=== PATIENT | male | born 1935 | race Caucasian/White ===

== ENCOUNTER → 2017-01-27 | Outpatient (CLI) | payer MEDICARE, OTHER | END | disposition home or self-care (01) | LOC: GMAH 10:12 | PROVIDERS: ATTEND Family Medicine | DX: I10 Essential (primary) hypertension (principal) ==

== ENCOUNTER 2017-03-12 02:45 | Day surgery (SDC) | payer MEDICARE, OTHER ==
[2017-03-12] MEDS ORDERED: LACTATED RINGERS 1,000 ML ONE (05:59)
[2017-03-12] MEDS ORDERED: fentaNYL CITRATE INJ 50 MCG/ML AMP ONE (08:46)
--- NOTE | 2017-03-12 09:51 | OP ---
DATE OF PROCEDURE: 03/12/17 PREOPERATIVE DIAGNOSIS: 1. History of colon cancer in 2009. 2. History of polyps, multiple tubular adenomas removed during his last colonoscopy in December of 2014. POSTOPERATIVE DIAGNOSIS: 1. Diverticulosis. PROCEDURE: 1. Colonoscopy. SURGEON: Nirav Dhillon MD. COMPLICATIONS: None apparent. BLOOD LOSS: None. MEDICATIONS: Monitored anesthesia care. DESCRIPTION OF PROCEDURE: Informed consent was obtained prior to sedation. The preprocedure cardiopulmonary assessment was satisfactory. The patient was placed in the left lateral decubitus position and was sedated. The tip of the Olympus colonoscope was inserted in the rectum and guided easily over to the cecum. The cecum was identified by locating the ileocecal valve and appendiceal orifice. Prep was good overall. There were a few areas that had some residue and liquid. I irrigated and suctioned this away to allow for good visualization. The mucosa of the cecum, ascending colon, hepatic flexure, transverse colon, splenic flexure, descending colon and residual sigmoid colon was examined. Direct and retroflexed views of the rectum were obtained. The patient has evidence of a colocolonic anastomosis in the left colon from his prior resection. The patient has a few diverticula in the ascending colon and left colon as well. There are several tattooed areas from prior polypectomies. There is no evidence of any residual polyps and no evidence of malignancy. The procedure was then terminated after examination was completed. RECOMMENDATIONS: 1. Followup with me in the office in one year. 2. At 81 years old, he likely does not need any followup colon cancer screening. We certainly would investigate any symptoms that arise in the future. #[id number] cc: Sarwat Winchester MD [facility]
[2017-03-12] MEDS ORDERED: LIDOCAINE 1% 10 ML VIAL INJ ONE (10:00)
[2017-03-12] MEDS ORDERED: PROPOFOL 200 MG/20 ML VIAL IV ONE (10:00)
[2017-03-12 10:20] VITALS: BP 194/87; TEMP 97.5; O2SAT 99
== END 2017-03-12 10:20 | disposition home or self-care (01) ==
LOC: AMB 02:45
PROVIDERS: ATTEND Internal Medicine Gastroenterology
DX: Z12.11 Encounter for screening for malignant neoplasm of colon (principal); K57.30 Diverticulosis of large intestine without perforation or abscess without bleeding; I10 Essential (primary) hypertension; E11.9 Type 2 diabetes mellitus without complications; E78.5 Hyperlipidemia, unspecified; G50.0 Trigeminal neuralgia; K21.9 Gastro-esophageal reflux disease without esophagitis; Z86.010 Personal history of colon polyps; Z85.038 Personal history of other malignant neoplasm of large intestine; Z79.82 Long term (current) use of aspirin; Z79.899 Other long term (current) drug therapy
CPT/HCPCS: 00810; 82948; G0105; J3010; J3490; J7120

== ENCOUNTER → 2017-05-16 | Outpatient (CLI) | payer MEDICARE, OTHER | LOC: GMAH 11:35 | PROVIDERS: ATTEND Family Medicine | DX: E53.8 Deficiency of other specified B group vitamins (principal); D64.9 Anemia, unspecified ==

== ENCOUNTER → 2017-06-02 | Outpatient (CLI) | payer MEDICARE, OTHER ==
--- NOTE | 2017-06-03 07:43 | MRI ---
MRI left knee without contrast INDICATION: Bilateral primary osteoarthrosis chronic knee pain TECHNIQUE: Noncontrast MR imaging left knee standard protocol FINDINGS: Large joint effusion. There is a diffuse medial meniscal tear with displaced fragment noted adjacent to the medial femoral condyle extending obliquely to the posterior horn region. This is a delaminating partial bucket-handle type lesion. There is a large osteochondral lesion with subchondral impaction/collapse with subchondral cystic changes and overlying grade 4 chondrosis in the midportion medial femoral condyle. This lesion measures about 2.5 cm in AP dimension. No disruption of the cruciate ligaments. Mild free edge degenerative tear body and posterior horn lateral meniscus with diffuse background myxoid degeneration. Extensor tendons are intact. The coronal gluer and wedger images show a T1 hyperintense mass possibly lipoma in the vastus medialis region consider MRI of the thigh to further characterize. Multifocal up to grade 4 chondrosis of the patella. There is a region of subchondral cystic change in the medial patellar facet to the apex measuring at 10 mm wide indicating overlying grade 4 chondrosis. Moderate joint effusion. No collateral ligament disruption. IMPRESSION: Extensive osteochondral lesion with subchondral cystic change and overlying grade 4 chondrosis medial femoral condyle with subchondral impaction/collapse Extensive medial meniscal tear with displaced bucket handle type fragment Lower grade degenerative tear lateral meniscus Moderate joint effusion Up to grade 4 multifocal chondrosis of the patellofemoral joint especially medial patellar facet and apex Probable lipoma in the vastus medialis in the distal thigh recommend dedicated MRI thigh to further assess Electronically signed by: Diego Wellington MD 06/03/2017 7:42 AM CDT
--- NOTE | 2017-06-03 07:47 | MRI ---
MRI right knee without contrast INDICATION: Bilateral knee pain chronic primary osteoarthrosis TECHNIQUE: Noncontrast MR imaging right knee standard protocol FINDINGS: Moderate joint effusion. Multifocal grade 4 chondrosis across the patellar apex with subchondral edema and cystic change. There is also cyst formation along the lateral margin of the lateral facet. Mild lateral patellar tracking. Cruciate ligaments are intact. Extensor tendons are intact. There is a diffuse horizontal degenerative tear throughout the body and posterior horn medial meniscus. Mild discoid morphology of the lateral meniscus with mild degenerative signal and minimal fraying as well. Multifocal up to grade 3-4 chondrosis of the medial tibiofemoral compartment. Mild IT band friction edema as well. There is mild partial extrusion of the medial meniscus on the coronal images related to the osteoarthrosis. IMPRESSION: Multifocal chondrosis of the knee up to grade 4 most pronounced in the patellofemoral and medial tibiofemoral compartments Moderate joint effusion Mild lateral patellar tracking Degenerative meniscal tears with mild discoid morphology laterally and partial medial extrusion of the medial meniscus Electronically signed by: Diego Wellington MD 06/03/2017 7:46 AM CDT
== END | disposition home or self-care (01) ==
LOC: MRI 08:57
PROVIDERS: ATTEND Specialist
DX: M17.0 Bilateral primary osteoarthritis of knee (principal)

== ENCOUNTER → 2017-07-22 | Outpatient (CLI) | payer MEDICARE, OTHER | END | disposition home or self-care (01) | LOC: GMAH 10:36 | PROVIDERS: ATTEND Family Medicine | DX: D64.9 Anemia, unspecified (principal); E53.8 Deficiency of other specified B group vitamins ==

== ENCOUNTER → 2017-11-03 | Outpatient (CLI) | payer MEDICARE, OTHER | END | disposition home or self-care (01) | LOC: GMAH 11:18 | PROVIDERS: ATTEND Family Medicine | DX: Z12.5 Encounter for screening for malignant neoplasm of prostate (principal); E78.2 Mixed hyperlipidemia | CPT/HCPCS: 84443; 84550; G0103 ==

== ENCOUNTER 2018-04-23 16:36 | Inpatient (IN) | payer OTHER ==
--- NOTE | 2018-04-23 17:21 | ED.PDOC ---
History of Present Illness - General Chief Complaint: GI Problem Stated Complaint: Sour stomach Time Seen by Provider: 04/23/18 17:17 Source: patient, family Exam Limitations: no limitations Additional Information: PT REPORTS HE IS JUST NOT FEELING WELL. C/O "SOUR STOMACH" HAS SEEN HIS PCP AND IS ON CIPRO FOR A "VIRAL INTESTINAL INFX" STARTED INITIALLY WITH N/V/D BUT NOW JUST C/O NAUSEA AND GENERALIZED MALAISE. - History of Present Illness Timing/Duration: 1 week Improving Factors: nothing Worsening Factors: nothing Associated Symptoms: weakness Allergies/Adverse Reactions: Allergies Carbamazepine [From Tegretol] Allergy (Verified 05/03/15 15:09) Oxcarbazepine [From Trileptal] Allergy (Verified 05/03/15 15:09) Home Medications: Ambulatory Orders Acetaminophen [Tylenol] 1,000 mg PO BID 03/11/17 Allopurinol [Zyloprim] 300 mg PO DAILY 03/11/17 Aspirin [St Azeem Low Dose Aspiri] 81 mg PO BEDTIME 03/11/17 Atorvastatin Calcium [Lipitor] 20 mg PO BEDTIME 03/11/17 Bioflavonoid Products [Jaz-C] 1 tab PO DAILY 03/11/17 Celecoxib [Celebrex] 200 mg PO DAILY 03/11/17 Lactobacillus [Acidophilus] 1 tab PO DAILY 03/11/17 Lisinopril & Hydrochlorothiazi [Lisinopril/Hctz 20-25 mg] 1 tab PO DAILY Loratadine [Claritin] 10 mg PO DAILY 03/11/17 Metformin HCl [Metformin HCl ER (Osmotic] 500 mg PO BID 03/11/17 Multiple Vitamin [Multi Vitamin] 1 tab PO DAILY 03/11/17 Nebivolol HCl [Bystolic] 20 mg PO DAILY 03/11/17 Pantoprazole Sodium 40 mg PO PRN 03/11/17 Potassium Chloride [Klor-Con 25] 50 meq PO BID 03/11/17 Spironolactone [Aldactone] 12.5 mg PO DAILY 03/11/17 Verapamil HCl [Verapamil HCl Sr] 240 mg PO BID 03/11/17 Review of Systems - Review of Systems Constitutional: States: fever. Denies: chills EENTM: States: no symptoms reported Respiratory: States: cough. Denies: short of breath, wheezing Cardiology: Denies: chest pain, palpitations, syncope Gastrointestinal/Abdominal: States: diarrhea, nausea, vomiting. Denies: abdominal pain Genitourinary: Denies: dysuria, frequency, hematuria Musculoskeletal: States: no symptoms reported Skin: States: no symptoms reported Neurological: States: no symptoms reported Endocrine: States: no symptoms reported Hematologic/Lymphatic: States: no symptoms reported Past Medical History (General) - Patient Medical History Hx Seizures: No Hx Stroke: No Hx Asthma: No Hx of COPD: No Hx Cardiac Disorders: Yes Hx Congestive Heart Failure: No Hx Pacemaker: No Hx Hypertension: Yes Hx Diabetes: Yes Hx Gastroesophageal Reflux: Yes Hx Cancer: Yes - Skin , colon Hx MRSA: No Surgical History: colectomy - Vaccination History Hx Tetanus, Diphtheria Vaccination: No Hx Influenza Vaccination: Yes - 2017 Hx Pneumococcal Vaccination: Yes - Social History Hx Tobacco Use: No Hx Alcohol Use: No Hx Substance Use: No Hx Physical Abuse: No Hx Emotional Abuse: No Family Medical History - Family History Mother Family History: No Known Living Status: Hx Family Asthma: No Hx Family Congestive Heart Failure: No Hx Family Hypertension: Yes Hx Family Stroke: No Hx Cardiac Disease: No Hx Family Diabetes: No Hx Family Cancer: Yes Physical Exam - Physical Exam General Appearance: Alert, No apparent distress Eye Exam: bilateral normal Ears, Nose, Throat: normal ENT inspection, normal pharynx, other - DRY MUCOUS MEMBRANES Neck: non-tender, full range of motion, supple Respiratory: lungs clear, normal breath sounds, no respiratory distress Cardiovascular/Chest: regular rate, rhythm, no murmur Gastrointestinal/Abdominal: non tender, soft, no organomegaly Back Exam: normal inspection, no CVA tenderness, no vertebral tenderness Extremity: normal range of motion, non-tender, normal inspection Neurologic: alert, normal mood/affect Skin Exam: normal color, other - HOT/DRY/NO RASH Lymphatic: no adenopathy Departure - Departure Clinical Impression: Diabetes 1.5, managed as type 2 Pneumonia Qualifiers: Pneumonia type: due to unspecified organism Laterality: left Lung location: lower lobe of lung Qualified Code(s): J18.1 - Lobar pneumonia, unspecified organism Hypertension Qualifiers: Hypertension type: essential hypertension Qualified Code(s): I10 - Essential ( primary) hypertension ICD-10 Supporting Text: PARTIALLY TREATED PNEUMONIA Time of Disposition: 20:30 - D/W LEONARDO WILL ADMIT Disposition: Admit Patient Condition: Fair Departure Forms: ED Discharge - Pt. Copy, Patient Portal Self Enrollment Referrals: Sarwat Winchester MD [Primary Care Provider] - 1-2 Weeks Home Medications: Ambulatory Orders Acetaminophen [Tylenol] 1,000 mg PO BID 03/11/17 Allopurinol [Zyloprim] 300 mg PO DAILY 03/11/17 Aspirin [St Azeem Low Dose Aspiri] 81 mg PO BEDTIME 03/11/17 Atorvastatin Calcium [Lipitor] 20 mg PO BEDTIME 03/11/17 Bioflavonoid Products [Jaz-C] 1 tab PO DAILY 03/11/17 Celecoxib [Celebrex] 200 mg PO DAILY 03/11/17 Lactobacillus [Acidophilus] 1 tab PO DAILY 03/11/17 Lisinopril & Hydrochlorothiazi [Lisinopril/Hctz 20-25 mg] 1 tab PO DAILY Loratadine [Claritin] 10 mg PO DAILY 03/11/17 Metformin HCl [Metformin HCl ER (Osmotic] 500 mg PO BID 03/11/17 Multiple Vitamin [Multi Vitamin] 1 tab PO DAILY 03/11/17 Nebivolol HCl [Bystolic] 20 mg PO DAILY 03/11/17 Pantoprazole Sodium 40 mg PO PRN 03/11/17 Potassium Chloride [Klor-Con 25] 50 meq PO BID 03/11/17 Spironolactone [Aldactone] 12.5 mg PO DAILY 03/11/17 Verapamil HCl [Verapamil HCl Sr] 240 mg PO BID 03/11/17 Decision To Admit - Decistion To Admit Decision to Admit Reason: Admit from ER Decision to Admit Date: 04/23/18 Decision to Admit Time: 20:25
--- NOTE | 2018-04-23 17:39 | RAD ---
EXAM DESCRIPTION: Chest,2 Views CLINICAL HISTORY:82 years Male, NAUSEA, COUGH Comparison: May 04, 2015 FINDINGS: Left basilar /retrocardiac patchy opacities may represent atelectasis or pneumonia. No pleural effusion. No pneumothorax. Cardiac and mediastinal silhouette is unremarkable. No acute osseous abnormality. Spine degenerative changes. Soft tissues are unremarkable. IMPRESSION: Left basilar/retrocardiac patchy opacities may represent atelectasis or pneumonia. Electronically signed by: Gume Ambrocio MD 04/23/2018 5:38 PM CDT
[2018-04-23] MEDS ORDERED: IBUPROFEN 200 MG TAB ONE (19:02)
[2018-04-23] MEDS ORDERED: IBUPROFEN 200 MG TAB PO ONE (19:02)
--- NOTE | 2018-04-23 19:22 | CT ---
EXAM DESCRIPTION: Abdoment/Pelvis w/o Contrast CLINICAL HISTORY: FEVER, ELEVATED LIVER ENZYMES COMPARISON: None Available. TECHNIQUE: Contiguous axial images of the abdomen and pelvis were obtained followed by reconstruction images. This exam was performed according to our departmental dose-optimization program, which includes automated exposure control, adjustment of the mA and/or kV according to patient size and/or use of iterative reconstruction technique. FINDINGS: There is consolidation and atelectasis at the left lung base. Several right renal stones measuring up to approximately 9 mm. No ureteral stone on either side. Exophytic lesion of the left kidney may be a cyst. There is bilateral renal atrophy. There is enlargement of the prostate. Neoplasm is not excluded. There is focal enlargement of the gastric wall. The stomach is quite underdistended and this could be transient but neoplasm or other abnormality is not excluded. The right lung base contains atelectasis and scar but no significant consolidation. Fat but no bowel extends into bilateral inguinal hernias. There is trace pelvic fluid. The gallbladder is unremarkable by CT criteria. Adrenal glands are within normal limits. Aorta is of normal caliber and tapering. There is no bowel obstruction. IMPRESSION: Left lung base consolidation. See additional findings above. Electronically signed by: Wilmar Joy 04/23/2018 7:21 PM CDT
--- NOTE | 2018-04-23 21:01 | HP ---
SUPERVISING PHYSICIAN: Sebastian Lynch M.D. CHIEF COMPLAINT: Gastrointestinal problem and fever. HISTORY OF PRESENT ILLNESS: This is an 82 year-old male patient who has been sick with a fever, nausea and vomiting since Friday. He had chills and was dizzy. He went to see Arvind Obando, his primary care physician, and he sent him to the hospital to get IV fluids and some lab work. He also placed him on Cipro for gastroenteritis. He has continued to feel poorly. Although the vomiting is now gone, he continues to feel nauseated and has general malaise and fatigue, and he came to the Emergency Room. In the Emergency Room his WBCs were 9.1 with hemoglobin 12.7, hematocrit 38.3. Neutrophils were 78.4%. Chemistry was slightly low at 133, potassium 3.5, chloride 101, carbon dioxide 23, BUN 53, creatinine 2.11. His baseline creatinine is 1.1 to 1.2 and it was 1.4 on Friday. His bilirubin was 0.9. AST 228, ALT 169, alkaline phosphatase 128. Albumin 3, globulin 4.2. On Friday, his AST was 27, ALT was 17 and alkaline phosphatase was 88. Lactic acid 1.4. Urinalysis showed 100 urine protein, trace of lysed urine blood and 2 urine urobilirubin. Because of his elevated LFTs an abdominal/pelvic CT was done that showed a left lung base consolidation with several right renal stones measuring up to approximately 9 mm. No ureteral stone on either side. Exophytic lesion of the left kidney may be a cyst. There is bilateral renal atrophy. There is enlargement of the prostate. Neoplasm is not excluded. There is focal enlargement of the gastric wall. The stomach is quite under distended and this could be transient, but neoplasm or other abnormality is not excluded. Fat but no bowel extends into the bilateral inguinal hernias and there is a trace of pelvic fluid. The gallbladder is unremarkable by CT criteria. The adrenal glands are within normal limits. There is no bowel obstruction. A chest x-ray was done and it also shows a left basilar/retrocardiac patchy opacity that may represent atelectasis or pneumonia. The patient has not had any of his home medications since last Friday with the exception of his Cipro that was prescribed for him on Friday, his Zofran, 1 dose of Celebrex and 1 dose of Benadryl. I was called for admission to the hospital PAST MEDICAL HISTORY: 1. Diabetes mellitus type 2. 2. Hypertension. 3. Benign prostatic hypertrophy. 4. Colorectal cancer. 5. Trigeminal neuralgia. 6. Gastroesophageal reflux disease. PAST SURGICAL HISTORY: 1. Colorectal surgery. 2. Appendectomy. 3. Trigeminal nerve surgery. CURRENT MEDICATIONS: Per the EMR and awaiting verification. ALLERGIES: CARBAMAZEPINE AND OXCARBAZEPINE. FAMILY HISTORY: Hypertension and cancer. SOCIAL HISTORY: He quit smoking in 1980. There is no history of alcohol or illicit drug use. He is . He lives in [place]. REVIEW OF SYSTEMS: Positive for fever and fatigue. Negative for weight changes. HEENT: Negative for sinus symptoms, ear pain, vision changes, sore throat. RESPIRATORY: Positive for some mild shortness of breath but negative for coughing or wheezing. CARDIAC: Negative for chest pain, palpitations or tachycardia. GASTROINTESTINAL: Positive for nausea, vomiting. Negative for diarrhea or constipation. GENITOURINARY: Negative for hematuria, nocturia or dysuria. SKIN: Negative for lesions or rashes. HEMATOLOGIC: Negative for bruising. NEUROLOGIC: Negative for dizziness, headaches or seizures. PHYSICAL EXAMINATION: VITAL SIGNS: Temperature on admission was 101.9, it is now 99.1. Heart rate 68 , blood pressure 124/72, respiratory rate 18, O2 sat 94% on room air. GENERAL: This is an 82 year-old male patient who is lying in his hospital bed. He is in no acute distress. HEENT: Normocephalic and atraumatic. Pupils are equal and reactive. Oropharynx is clear. Oral mucous membranes are moist. NECK: Supple without mass. RESPIRATORY: Somewhat diminished at the bases but otherwise clear to auscultation bilaterally. CHEST: There is equal rise and fall of the chest with inspiration and expiration. CARDIOVASCULAR: Regular rate and rhythm. GASTROINTESTINAL: Abdomen is soft, nondistended, non-tender. Bowel sounds are positive. EXTREMITIES: No cyanosis, clubbing or edema. NEUROLOGIC: He is awake, alert and oriented times three. LABORATORY: Labs and films are as per the history of present illness. ASSESSMENT: 1. Left lower lobe pneumonia. Has recently been treated with Cipro for another illness. 2. Gastroenteritis times 5 days, failed outpatient treatment. He recently was treated with Cipro and fluids as an outpatient. 3. Elevated liver function tests with normal liver function tests 2 days ago. 4. Febrile illness most likely secondary to #1. 5. Acute renal failure with creatinine on admission of 2.11. 6. Dehydration most likely secondary to the gastroenteritis as well as febrile illness. 7. Hypertension. 8. Gastroesophageal reflux disease. 9. Diabetes mellitus type 2. 10. Benign prostatic hypertrophy. 11. History of colorectal cancer. PLAN: We will admit the patient to the hospital. I have initiated pneumonia guidelines. He will be started on Levaquin and Rocephin. Also, I will place him on bowel rest and make him NPO. I have ordered a sonogram of the abdomen in the AM. Started him on a PPI for ulcer prophylaxis and Lovenox for DVT prophylaxis. He will be on Accu-Cheks with sliding scale every 6 hours. I have also given Zofran for nausea. He also sees Dr. Dhillon, warp scouring vat tender. #[id number] [facility]
[2018-04-23] MEDS ORDERED: SODIUM CHLORIDE 0.9% (FLUSH) 10 ML SYG IV PRN (21:31)
[2018-04-23] MEDS ORDERED: cefTRIAXone SODIUM 1 GM VIAL ONE (21:43)
[2018-04-23] MEDS ORDERED: SODIUM CHL 0.9% 50ML MIN-BAG+ 50 ML IVPB ONE (21:43)
[2018-04-23] MEDS ORDERED: cefTRIAXone SODIUM 1 GM in SODIUM CHL 0.9% 50ML MIN-BAG+ 50 ML IVPB SCH (22:00)
[2018-04-23] MEDS ORDERED: IV SET AND CAP CHANGE INJ INJ SCH (22:00)
[2018-04-23] MEDS ORDERED: SODIUM CHLORIDE 0.9% 1000ML 1,000 ML IVS ONE (22:58)
[2018-04-23] MEDS ORDERED: AZITHROMYCIN IV 500 MG in SODIUM CHLORIDE 0.9% 250ML 250 ML IVPB SCH (23:00)
[2018-04-23] MEDS ORDERED: ENOXAPARIN SODIUM 40 MG/0.4 ML SYG SUBCU SCH (23:30)
[2018-04-23] MEDS ORDERED: PANTOPRAZOLE SODIUM IV 40 MG VIAL IV SCH (23:30)
[2018-04-24] MEDS ORDERED: DEXTROSE 50% 25 GM/50 ML SYG IV PRN (00:04)
[2018-04-24] MEDS ORDERED: GLUCAGON INJ 1 MG VIAL SUBCU PRN (00:04)
[2018-04-24] MEDS ORDERED: ONDANSETRON INJ 4 MG/2 ML VIAL IV PRN (00:05)
[2018-04-24] MEDS: levoFLOXacin 500MG IV 500 MG in PREMIX BAG 1 BAG IVPB SCH ×2 (00:42→23:14)
[2018-04-24] MEDS: KCL 20MEQ/D5NS 1,000 ML IVS PRN ×3 (01:56→13:59)
[2018-04-24] MEDS: INSULIN LISPRO 100 UNITS/ML PEN SUBCU SCH ×3 (06:25→21:15)
--- NOTE | 2018-04-24 06:53 | RAD ---
EXAM: PA and LATERAL CHEST RADIOGRAPHS CLINICAL INDICATION: Pneumonia. COMPARISON: Compared to the chest radiographs of April 23, 2018. FINDINGS: Cardiac size and pulmonary vasculature are normal. Unchanged left lower lobe consolidation. Lungs remain otherwise clear. No pleural effusions or pneumothorax. No free peritoneal gas layering under the hemidiaphragms. No suspicious hilar or mediastinal lymphadenopathy. Bones are intact on these two views. IMPRESSION: Unchanged chest radiograph. Electronically signed by: Ravi Roldan MD 04/24/2018 6:51 AM CDT
[2018-04-24] MEDS: SODIUM CHLORIDE 0.9% (FLUSH) 10 ML SYG IV SCH ×2 (09:29→20:48)
--- NOTE | 2018-04-24 12:53 | US ---
EXAM DESCRIPTION: Abdomen,Complete CLINICAL HISTORY: elevated LFTs COMPARISON: None. TECHNIQUE: Real-time sonographic images of the abdomen are obtained. FINDINGS: Pancreas is unremarkable. The right lobe of the liver measures 18.0 cm. The liver is diffusely homogeneous and normal in echogenicity. No focal hepatic mass is seen. The gallbladder is normally distended and free of abnormal internal echogenicities. No gallbladder wall thickening or pericholecystic fluid is seen. The common bile duct measures 5 mm in greatest diameter. The right kidney measures 13.3 x 5.9 x 5.5 cm. There is a 5 mm calcification in the upper pole calyx of the right kidney.. Small 12 mm anechoic cortical cyst of the upper pole right kidney is seen. The left kidney measures 14.8 x 6.3 x 7.5 cm. There is an anechoic cyst measuring 5.1 x 5.7 x 4.3 cm in the midpole region of the left kidney. Both kidneys show normal renal cortical echogenicity. No hydronephrosis is seen. The spleen measures 12.5 cm. Visualized IVC is unremarkable. There is moderate calcification of the abdominal aorta measuring up to 2.6 cm greatest diameter. IMPRESSION: Hepatomegaly. Echogenicity of the liver is within normal limits. Nonobstructing right nephrolithiasis. Simple bilateral renal cortical cysts are seen. Mild abdominal aortic aneurysm measures 2.6 cm. Recommend follow-up imaging every 5 years. Electronically signed by: Darion Wills MD 04/24/2018 12:52 PM CDT
[2018-04-24] MEDS ORDERED: POTASSIUM CHLORIDE 10 MEQ TAB PO ONE (13:54)
[2018-04-24] MEDS ORDERED: PANTOPRAZOLE SODIUM TAB 40 MG PO ONE (13:54)
[2018-04-24] MEDS: KCL 20MEQ/0.45% NS 1,000 ML IVS PRN (14:00)
[2018-04-24] MEDS: NYSTATIN SUSPENSION 5 ML UD MT SCH ×3 (14:02→20:48)
[2018-04-24] MEDS: PANTOPRAZOLE SODIUM TAB 40 MG PO SCH (16:24)
[2018-04-24] MEDS ORDERED: PANTOPRAZOLE SODIUM TAB 40 MG PO SCH (16:30)
--- NOTE | 2018-04-24 16:57 | PN ---
DATE: 04/24/18 SUPERVISING PHYSICIAN: Sebastian Lynch M.D. SUBJECTIVE: The patient says he continues to feel weak but is improving. He has had no recurrence of any abdominal pain and has not had any diarrhea. He does report he has a sore throat which looks like he has developed thrush since initiation of antibiotic therapy. OBJECTIVE: VITAL SIGNS: Temperature 98.1, pulse 53, blood pressure 176/77, respirations 20, satting 98% on room air. Weight is 98.2 kg. I's and O's show a positive balance of 1356 with 1906 in, 550 out. HEENT: Oropharynx shows white plaque membrane over the posterior portion of the tongue and throat resembling thrush. No adeno or lymphadenopathy noted. No lesions. CHEST: Lung sounds are diminished in the left with some rhonchi heard in the lateral posterior aspect on the left side. The right side is fairly clear, just diminished towards the bases. HEART: Regular rate and rhythm. ABDOMEN: Soft with no tenderness noted. No rebound. No guarding. EXTREMITIES: No clubbing, cyanosis or edema. NEUROLOGIC: He is alert and oriented times three. LABORATORY: White count 7,400, hemoglobin 10.4, hematocrit 31.5 with a microcytic/hyperchromic presentation with platelet count 142,000. Differential today shows to be without a left shift. Chemistries show potassium 3.3, sodium 138, BUN 53, creatinine is down to 1.94, glucose is between 129 and 168. Liver functions continue to show elevation with AST of 272, ALT 218, alkaline phosphatase 124 with normal bilirubin at 0.6. RADIOLOGY: He had an abdominal ultrasound this morning per radiology interpretation noted hepatomegaly with echogenicity and the liver within normal limits per radiology interpretation. Chest x-ray per radiology interpretation of a 2 view chest shows unchanged chest radiograph with left lower lobe consolidation. Please see that final report for full details. ASSESSMENT: 1. Left lower lobe pneumonia having failed to respond to outpatient treatment plan. 2. Gastroenteritis, likely viral in etiology, having failed to respond to outpatient treatment plan as well as fluids and Cipro now showing improvement on Levaquin and continued IV maintenance. 3. Elevated liver function tests with no history of hepatitis possibly secondary to acute illness and exacerbated by underlying dehydration with sonographic evidence of hepatomegaly. 4. Febrile illness likely secondary to #1. 5. Acute renal failure with creatinine on admission of 2.1 showing slight improvement after fluids likely from a prerenal azotemic state. 6. Dehydration from extended illness with viral gastroenteritis and current febrile condition showing improvement with fluids. 7. Hypertension, stable. 8. Gastroesophageal reflux disease. 9. Diabetes mellitus type 2. 10. Benign prostatic hypertrophy. 11. History of colorectal cancer with previous colorectal surgery. PLAN: Will continue with antibiotics today with Levaquin and discontinue the Rocephin. He will be on continued aggressive pulmonary hygiene with chest percussive therapy. He was NPO for the sonogram but will be given a diabetic diet once he is finished with that exam. Will go ahead and continue with fluids in efforts to correct the underlying dehydration and hopefully resolve some of the elevated liver function tests. Will again anticipate possible discharge tomorrow or Friday. Until then continue to monitor and treat appropriately. #[id number] [facility]
[2018-04-24] MEDS: POTASSIUM CHLORIDE 10 MEQ TAB PO SCH (17:14)
[2018-04-24] MEDS: metFORMIN HCL 500 MG TAB PO SCH (17:14)
[2018-04-24] MEDS ORDERED: IBUPROFEN 200 MG TAB PO PRN (19:57)
[2018-04-24] MEDS: diphenhydrAMINE HCL 25 MG CAP PO SCH (20:47)
[2018-04-24] MEDS: ATORVASTATIN 20 MG TAB PO SCH (20:49)
[2018-04-24] MEDS: ENOXAPARIN SODIUM 40 MG/0.4 ML SYG SUBCU SCH (20:49)
[2018-04-24] MEDS: VERAPAMIL ER 120 MG TAB PO SCH (20:50)
[2018-04-24] MEDS: ASPIRIN (CHEWABLE) 81 MG TAB PO SCH (20:50)
[2018-04-24] MEDS ORDERED: levoFLOXacin 500MG IV 100 ML IVPB ONE (20:55)
[2018-04-24] MEDS ORDERED: PANTOPRAZOLE SODIUM IV 40 MG VIAL IV SCH (21:00)
[2018-04-24] MEDS ORDERED: NON-FORMULARY MEDICATION 1 EA MIS (Metformin Hcl [Metformin Hcl Er] 500 MG) PO SCH (21:00)
[2018-04-25] MEDS: KCL 20MEQ/0.45% NS 1,000 ML IVS PRN (03:32)
[2018-04-25] MEDS: PANTOPRAZOLE SODIUM TAB 40 MG PO SCH (06:03)
[2018-04-25] MEDS: INSULIN LISPRO 100 UNITS/ML PEN SUBCU SCH ×4 (07:04→21:40)
[2018-04-25] MEDS: POTASSIUM CHLORIDE 10 MEQ TAB PO SCH ×2 (07:21→17:38)
[2018-04-25] MEDS: metFORMIN HCL 500 MG TAB PO SCH ×2 (07:21→17:38)
[2018-04-25] MEDS: LEVALBUTEROL NEBS 1.25 MG/3 ML VIAL NEB PRN ×3 (08:25→16:31)
[2018-04-25] MEDS ORDERED: NON-FORMULARY MEDICATION 1 EA MIS (Lisinopril & Hydrochlorothiazi [Lisinopril/Hctz 20-25 M PO SCH (09:00)
[2018-04-25] MEDS: VERAPAMIL ER 120 MG TAB PO SCH ×2 (09:07→20:47)
[2018-04-25] MEDS: ALLOPURINOL 300 MG TAB PO SCH (09:07)
[2018-04-25] MEDS: LISINOPRIL 10 MG TAB PO SCH (09:08)
[2018-04-25] MEDS: hydroCHLOROthiazide 25 MG TAB PO SCH (09:08)
[2018-04-25] MEDS: LORATADINE 10 MG TAB PO SCH (09:08)
[2018-04-25] MEDS: CELECOXIB 100 MG CAP PO SCH (09:09)
[2018-04-25] MEDS: NEBIVOLOL 2.5 MG TAB PO SCH (09:14)
[2018-04-25] MEDS: NYSTATIN SUSPENSION 5 ML UD MT SCH ×4 (09:14→20:50)
[2018-04-25] MEDS: SODIUM CHLORIDE 0.9% (FLUSH) 10 ML SYG IV SCH ×2 (09:43→20:48)
[2018-04-25] MEDS ORDERED: KCL 20MEQ/0.45% NS 1,000 ML IVS PRN (13:10)
[2018-04-25] MEDS ORDERED: levoFLOXacin 500MG IV 100 ML IVPB ONE (19:22)
[2018-04-25] MEDS: diphenhydrAMINE HCL 25 MG CAP PO SCH (20:48)
[2018-04-25] MEDS: ENOXAPARIN SODIUM 40 MG/0.4 ML SYG SUBCU SCH (20:48)
[2018-04-25] MEDS: ATORVASTATIN 20 MG TAB PO SCH (20:48)
[2018-04-25] MEDS: ASPIRIN (CHEWABLE) 81 MG TAB PO SCH (20:48)
[2018-04-25] MEDS: levoFLOXacin 500MG IV 500 MG in PREMIX BAG 1 BAG IVPB SCH (23:05)
[2018-04-26] MEDS: PANTOPRAZOLE SODIUM TAB 40 MG PO SCH (06:05)
--- NOTE | 2018-04-26 07:18 | RAD ---
EXAM: XR Chest, 2 Views CLINICAL HISTORY: The patient is 82 years old and is Male; pneumonia TECHNIQUE: Frontal and lateral views of the chest. COMPARISON: Prior study from 2 days earlier, 04/24/2018 FINDINGS: LUNGS: There is persistent LEFT lower lobe and lingular infiltrate obscuring the LEFT heart border. Flattening of the diaphragms on the lateral view with increased AP diameter suggests the presence of chronic obstructive pulmonary disease. PLEURAL SPACE: Unremarkable. No pneumothorax. HEART: Heart size is top normal. MEDIASTINUM: Unremarkable. BONES/JOINTS: Unremarkable .No acute fracture noted. TUBES, LINES AND DEVICES: Electrocardiogram leads are noted. IMPRESSION: 1. There is persistent LEFT lower lobe and lingular infiltrate obscuring the LEFT heart border. 2. Flattening of the diaphragms on the lateral view with increased AP diameter suggests the presence of chronic obstructive pulmonary disease. Electronically signed by: Billy Rutledge MD 04/26/2018 7:17 AM CDT
[2018-04-26] MEDS: INSULIN LISPRO 100 UNITS/ML PEN SUBCU SCH (07:43)
[2018-04-26] MEDS: metFORMIN HCL 500 MG TAB PO SCH (07:52)
[2018-04-26] MEDS: POTASSIUM CHLORIDE 10 MEQ TAB PO SCH (07:52)
[2018-04-26] MEDS ORDERED: BIFIDOBACTERIUM INFANTIS 4 MG CAP PO SCH (09:00)
[2018-04-26] MEDS: LORATADINE 10 MG TAB PO SCH (09:09)
[2018-04-26] MEDS: NEBIVOLOL 2.5 MG TAB PO SCH (09:09)
[2018-04-26] MEDS: ALLOPURINOL 300 MG TAB PO SCH (09:10)
[2018-04-26] MEDS: hydroCHLOROthiazide 25 MG TAB PO SCH (09:10)
[2018-04-26] MEDS: NYSTATIN SUSPENSION 5 ML UD MT SCH (09:10)
[2018-04-26] MEDS: CELECOXIB 100 MG CAP PO SCH (09:10)
[2018-04-26] MEDS: LISINOPRIL 10 MG TAB PO SCH (09:10)
[2018-04-26] MEDS: VERAPAMIL ER 120 MG TAB PO SCH (09:10)
[2018-04-26] MEDS: SODIUM CHLORIDE 0.9% (FLUSH) 10 ML SYG IV SCH (09:11)
[2018-04-26] MEDS ORDERED: levoFLOXacin 500 MG TAB PO SCH (10:00)
[2018-04-26 11:35] VITALS: BP 166/68; TEMP 98.6; O2SAT 99
--- NOTE | 2018-04-26 14:29 | PN ---
DATE: 04/25/18 SUPERVISING PHYSICIAN: Sebastian Lynch M.D. SUBJECTIVE: The patient is sitting on the edge of the bed this morning. He notes that he is feeling a little bit better. Continues to feel weak. He has had no nausea or vomiting or diarrhea since admission. He remains afebrile. He reports that with chest percussive therapy he is producing copious amounts of sputum. OBJECTIVE: VITAL SIGNS: temperature 97.5, pulse 57, blood pressure 127/57, respirations 20, satting 98% on room air. I's and O's show a positive balance of 1526 with 3476 in, 1950 out. Weight is 98.9 kg. CHEST: Lung sounds continue to be diminished towards the bases bilaterally, but more so on the left than the right with continued crackles and some mild rhonchi heard on the left posterolateral aspect. HEART: Regular rate and rhythm. ABDOMEN: Obese but soft, non-tender. Positive bowel sounds. EXTREMITIES: No clubbing, cyanosis or edema. NEUROLOGIC: He remains alert and oriented times three. LABORATORY: CBC today shows to be stable with an H&H of 10.4 and hematocrit 31.4, platelet count 146,000. White count 7,100. No shift today is noted on differential. Chemistries show normal electrolytes with an elevated BUN of 41, creatinine 1.64 which is down from admission of 2.11. Blood sugars have been between 111 and 168. Liver functions continue to show elevation with AST 295, ALT 274 and alkaline phosphatase 172. Hepatitis panel is pending. MICROBIOLOGY: Blood cultures remain negative at 24 hours. Culture on sputum is pending. RADIOLOGY: No additional radiographic studies today as his x-rays have been showing to be fairly stable. ASSESSMENT: 1. Left lower lobe pneumonia community acquired having failed to respond to outpatient treatment plan. 2. Gastroenteritis, viral etiology more likely, having failed to respond to outpatient treatment plan as well as requiring previous IV fluids and starting Cipro , now showing some improvement on Levaquin and continued IV maintenance fluids. 3. Elevated liver function tests with no history of hepatitis with hepatitis panel currently pending felt to be likely due to acute illness and exacerbated by underlying dehydration with sonographic evidence of hepatomegaly. 4. Febrile illness likely secondary to #1. 5. Acute renal failure with elevated creatinine on admission of 2.1 showing improvement after fluids felt to be a prerenal azotemic state. 6. Dehydration from extended illness and secondary to viral gastroenteritis as well as previous fever and chills showing improvement with fluids. 7. Hypertension, stable. 8. Gastroesophageal reflux disease. 9. Diabetes mellitus type 2. 10. Benign prostatic hypertrophy. 11. History of colorectal cancer with previous colorectal surgery. PLAN: Will continue with current plan at this point with antibiotics. Rocephin was discontinued. He continues on Levaquin. He is having good response to chest percussive therapy and is tolerating this well. Will continue with that. He has not had any significant shortness of breath or wheezing. I have not started him on any scheduled breathing treatments, but he does have p.r.n. treatments with Albuterol. I will go ahead and decrease his fluids with anticipation of stopping and saline locking later today or possibly tomorrow as he continues to show improvement in his oral intake. He has been encouraged to walk with the nurses to increase his endurance and to help with lung function. Will hopefully be able to discharge tomorrow. Will continue antibiotic therapy with Levaquin and followup with his primary care provider on the following week which is Dr. Winchester. Until discharge, will continue to monitor and treat appropriately. #[id number] [facility]
--- NOTE | 2018-05-05 09:18 | DS ---
SUPERVISING PHYSICIAN: Sebastian Lynch MD DISCHARGE DIAGNOSIS: 1. Left lower lobe pneumonia, community acquired, having failed to respond to outpatient treatment plan showing good response to parenteral antibiotics. 2. Gastroenteritis, viral etiology more likely, having failed to respond to outpatient treatment plan as well as requiring previous IV fluids and Cipro, showing improvement on Levaquin and continued IV maintenance fluids. 3. Elevated liver function tests with no history of hepatitis with hepatitis panel negative, felt to be due to acute illness and exacerbated by underlying dehydration with sonographic evidence of hepatomegaly. 4. Febrile illness, secondary to #1, improving. 5. Acute renal failure with elevated creatinine on admission of 2.1, improving with IV fluids, secondary to a prerenal azotemic state. 6. Dehydration from extended illness and secondary to viral gastroenteritis as well as previous fever and chills, showing improvement with fluids. 7. Thrush, secondary to antibiotic therapy. 8. Hypertension, stable. 9. Gastroesophageal reflux disease. 10. Diabetes mellitus, type 2, with stable blood sugars. 11. Benign prostatic hypertrophy. 12. History of colorectal cancer with previous colorectal surgery. REASON FOR HOSPITALIZATION: Mr. Seaman is an 82 year-old male patient who has been sick with nausea and vomiting since Friday before admission. He had chills and was dizzy. He went to see Arvind Obando, his primary care provider, who sent him to the hospital to get IV fluids and some lab work. He also placed him on Cipro for gastroenteritis. He has continued to feel poorly. Although the vomiting had stopped, he continued to feel nauseated with general malaise and fatigue, and he came to the Emergency Room. In the Emergency Room his white count was 9.1. Bilirubin, AST, ALT and alkaline phosphatase were elevated. On Friday, his AST was 27, ALT was 17 and alkaline phosphatase was 88. Lactic acid 1.4. Due to his elevated liver functions, an abdominopelvic CT was done which showed his lung base had consolidation, several right renal stones measuring up to approximately 9 mm. No ureteral stones were noted. There was note of enlargement of the prostate. There was also note of focal enlargement of the gastric wall. The stomach was quite under distended, which could be transient, but neoplasm or other abnormality is not excluded. A chest x-ray was done and showed a left basilar/retrocardiac patchy opacity that could represent atelectasis or pneumonia. The patient had not had any of his home medications since last Friday prior to admission with the exception of his Cipro that was prescribed for him on Friday, as well as Zofran, 1 dose of Celebrex and 1 dose of Benadryl. He was then admitted to the Medical/Surgical Floor for further treatment of underlying pneumonia, left lower lobe, community acquired, and dehydration with elevated liver function tests with concerns for viral gastroenteritis. He was admitted in stable condition. LABORATORY: On admission, white count was 9,100. At discharge, it was 7,100. Hemoglobin and hematocrit were stable and at discharge were 10.4 and 31.4 with RBCs indicating a hyperchromic/microcytic anemia with platelet count 146,000. Differential did initially show a left shift. This resolved prior to discharge. His chemistries on admission showed low sodium and low potassium with sodium being 133, potassium 3.5. BUN was elevated at 52, creatinine 2.1. His initial liver functions showed AST 228, ALT 169, alkaline phosphatase 128. Prior to discharge, electrolytes had improved with sodium and potassium normalizing. BUN had gone down to 32, creatinine 1.42. Liver functions also showed improvement with AST down to 127, ALT 199, alkaline phosphatase 170. Blood sugars had been stable between 103 and 202. Urinalysis showed 100 protein , trace lysed blood, 2 urobilinogen, otherwise all other indices within normal limits as well as microscopic exam. He did have a hepatitis panel that was nonreactive for hepatitis A IGM antibody, B surface antigen, B IG antibody was nonreactive, hepatitis C antibody was nonreactive. MICROBIOLOGY: Sputum culture, final results, showed no growth after 12 hours with mixed nicolette on the final report. Blood cultures remained negative after 5 days. RADIOLOGY: In the Emergency Room, initial chest x-ray per radiologic interpretation of two-view chest showed note of left basilar retrocardiac patchy opacities likely representing atelectasis or pneumonia. He also had abdominopelvic CT in the Emergency Room prior to admission without contrast and per radiologic interpretation, there was followup lung base consolidation with multiple additional findings. Please see those results for details. He had multiple x-rays, last x-ray on 04/26/18 prior to discharge per radiologic interpretation of two-view chest showed persistent left lower lobe infiltrate that was obscuring the left heart border, inflated diaphragms on lateral view with increased AP diameter suggesting presence of chronic obstructive pulmonary disease. HOSPITAL COURSE: Mr. Seaman was admitted from the Emergency Room as noted above for concerns for gastroenteritis as well as left lower lobe pneumonia. He was initiated on antibiotic therapy on admission that included Rocephin and azithromycin. He was also started on Levaquin. His electrolytes were replaced as needed. He had aggressive pulmonary hygiene with breathing treatments, chest percussive therapy and was showing good clinical improvement with therapy and was felt on the day of discharge to have improved well enough to continue with outpatient management. He had no complications from treatment other than it was noted he had thrush which was treated with Nystatin suspension swish and swallow. PLAN: Mr. Seaman was discharged on 04/26/18 to have continued outpatient management and treatment with antibiotics to include Levaquin and have close clinical followup with his primary care provider, Dr. Winchester, in the following week or earlier if needed. He was to continue with his home medications as previous. He was to return to the hospital should he have any concerning symptoms. He was to increase activity as tolerated. Diet was diabetic diet as tolerated. Prescription at discharge: 1. Levaquin 500 mg q.24h. for 7 days. 2. Nystatin suspension, swish and swallow for an additional 5 days, #1 bottle. 3. Guaifenesin 600 mg twice daily, #28. 4. Align or [id number] probiotic of choice for 30 days. 5. Xopenex handheld inhaler 45 mcg 1 to 2 puffs inhaled q.8h. as needed for shortness of breath or wheezing. Condition at discharge was stable and improved. #[id number] [facility]
== END 2018-04-26 11:20 | disposition home or self-care (01) | DRG 194 ==
LOC: ER 16:36 → OBSVTOIN 20:58 → MS 20:58
PROVIDERS: ADMIT Nurse Practitioner Acute Care; ATTEND Nurse Practitioner Family
DX: J18.9 Pneumonia, unspecified organism (principal); N17.9 Acute kidney failure, unspecified; B37.0 Candidal stomatitis; E11.9 Type 2 diabetes mellitus without complications; A08.4 Viral intestinal infection, unspecified; E86.0 Dehydration; R74.8 Abnormal levels of other serum enzymes; I10 Essential (primary) hypertension; N40.0 Benign prostatic hyperplasia without lower urinary tract symptoms; K21.9 Gastro-esophageal reflux disease without esophagitis; E66.9 Obesity, unspecified; Z85.038 Personal history of other malignant neoplasm of large intestine; Z87.891 Personal history of nicotine dependence; Z79.1 Long term (current) use of non-steroidal anti-inflammatories (NSAID); Z79.82 Long term (current) use of aspirin; Z79.84 Long term (current) use of oral hypoglycemic drugs; Z79.899 Other long term (current) drug therapy; Z68.32 Body mass index [BMI] 32.0-32.9, adult

== ENCOUNTER → 2018-11-05 | Outpatient (CLI) | payer OTHER | LOC: GMAH 10:17 | PROVIDERS: ATTEND Family Medicine | DX: E78.2 Mixed hyperlipidemia (principal); Z12.5 Encounter for screening for malignant neoplasm of prostate | CPT/HCPCS: 84550; G0103 ==

== ENCOUNTER → 2020-09-27 | Outpatient (CLI) | payer OTHER | LOC: GMA MATASK 11:00 | PROVIDERS: ATTEND Family Medicine | DX: I10 Essential (primary) hypertension (principal); E53.8 Deficiency of other specified B group vitamins; E78.2 Mixed hyperlipidemia; E11.9 Type 2 diabetes mellitus without complications ==